=== PATIENT | male | born 1965 | race Hispanic/Latino ===

== ENCOUNTER 2022-04-29 15:01 | Emergency (ER) | payer BC ==
[2022-04-29] MEDS ORDERED: Lidocaine 1% (PF) 30 ML VIAL ONE (17:32)
[2022-04-29] MEDS ORDERED: Boostrix 0.5 ML (Tdap) VIAL ONE (17:52)
== END 2022-04-29 18:04 | disposition home or self-care (01) ==
LOC: CSHERS 15:01
DX: S61.411A Laceration without foreign body of right hand, initial encounter (principal); W22.8XXA Striking against or struck by other objects, initial encounter
CPT/HCPCS: 12001; 90471; 90715; J2001